=== PATIENT | female | born 1940 | race Two or more races ===

== ENCOUNTER → 2017-05-08 | Day surgery (SDC) | payer MEDICARE, OTHER ==
[~2017-05-08] VITALS: Ht 165.1 cm; Wt 63.5 kg
[2017-05-08 07:28] VITALS: BP 161/81
[2017-05-08 11:05] VITALS: BP 109/60
== END | disposition home or self-care (01) ==
LOC: GI 07:09 → OR 08:30 → GI 08:30
PROVIDERS: Internal Medicine
PROC: 0DB68ZX Excision of Stomach, Via Natural or Artificial Opening Endoscopic, Diagnostic (ICD-10-PCS; 2017-05-08)
PROC: 0DB38ZX Excision of Lower Esophagus, Via Natural or Artificial Opening Endoscopic, Diagnostic (ICD-10-PCS; 2017-05-08)
PROC: 0DB48ZX Excision of Esophagogastric Junction, Via Natural or Artificial Opening Endoscopic, Diagnostic (ICD-10-PCS; principal; 2017-05-08 08:30)
DX: K20.8 Other esophagitis (principal); K29.70 Gastritis, unspecified, without bleeding; K21.9 Gastro-esophageal reflux disease without esophagitis; I10 Essential (primary) hypertension; F41.9 Anxiety disorder, unspecified; D63.8 Anemia in other chronic diseases classified elsewhere; E78.5 Hyperlipidemia, unspecified; M81.0 Age-related osteoporosis without current pathological fracture; Z68.23 Body mass index [BMI] 23.0-23.9, adult
CPT/HCPCS: 43235; J1200; J1610; J2250; J2310; J3010; J3490